=== PATIENT | male | born 1940 | race Caucasian/White ===

== ENCOUNTER 2017-06-21 10:28 | Inpatient (IN) | payer MEDICARE ==
--- NOTE | 2017-06-21 10:46 | ED ---
General Adult HPI - General Stated complaint: Cardiac Issues Time Seen by Provider: 06/21/17 10:28 Source: RN notes reviewed - History of Present Illness Initial comments: This is a 76-year-old male who presents emergency Department from [facility] for symptomatic bradycardia. Patient states his symptoms started 2 or 3 days ago. Patient has noticed exertional dyspnea and a lot more fatigued lately. Went to [facility] where they found his heart rate to be 29-30 beats minute. Patient appears to be in complete heart block. [facility] had not had any blood work done but they contacted Dr. Johnson who except the patient I transfer the patient to my ER. Patient currently denies any chest pain palpitations or shortness of breath while lying in bed with oxygen on. Patient states he had sprained some chest pain when he was short of breath today and yesterday but has none currently. - Related Data Allergies Allergy/AdvReac Type Severity Reaction Status Date / Time No Known Allergies Allergy Verified 06/21/17 10:47 Review of Systems ROS Statement: Those systems with pertinent positive or pertinent negative responses have been documented in the HPI. ROS Other: All systems not noted in ROS Statement are negative. General Exam - General Exam Comments Initial Comments: GENERAL: Patient is well-developed and well-nourished. Patient is nontoxic and well- hydrated and is in no acute distress. ENT: Neck is soft and supple. No significant lymphadenopathy is noted. Oropharynx is clear. Moist mucous membranes. Neck has full range of motion without eliciting any pain. EYES: The sclera were anicteric and conjunctiva were pink and moist. Extraocular movements were intact and pupils were equal round and reactive to light. Eyelids were unremarkable. PULMONARY: Unlabored respirations. Good breath sounds bilaterally. No audible rales rhonchi or wheezing was noted. CARDIOVASCULAR: Patient is bradycardic at about 30 beats a minute ABDOMEN: Soft and nontender with normal bowel sounds. No palpable organomegaly was noted. There is no palpable pulsatile mass. SKIN: Skin is clear with no lesions or rashes and otherwise unremarkable. NEUROLOGIC: Patient is alert and oriented x3. Cranial nerves II through XII are grossly intact. Motor and sensory are also intact. Normal speech, volume and content. Symmetrical smile. MUSCULOSKELETAL: Normal extremities with adequate strength and full range of motion. No lower extremity swelling or edema. No calf tenderness. LYMPHATICS: No significant lymphadenopathy is noted PSYCHIATRIC: Normal psychiatric evaluation. Medical Decision Making - Medical Decision Making EKG shows intraventricular rhythm at 30 bpm QRS is 146 QT intervals 574 QTC is 405. No signs of ST segment elevation or depression. I spoke with Dr. Johnson before the patient arrived and once the patient arrived patient had pacer pads applied patient will be directed to the [facility] where he 'll receive a pacemaker. Critical Care Time Critical Care Time: Yes Disposition Clinical Impression: Third degree AV block Disposition: ADMITTED IP TO THIS HOSP Referrals: Ana Roberts MD [Primary Care Provider] - 1-2 days Time of Disposition: 10:57
[2017-06-21] MEDS ORDERED: NITROGLYCERIN SL TABS 0.4 MG TAB SUBLINGUAL PRN (10:58)
[2017-06-21 11:03] LABS: Basophils % (A) 0 %; CH 32.1; CHCM 33.8; Eosinophils # (A) 0.2 k/uL (0-0.7); Eosinophils % (A) 3 %; HCT 39.8 % (39.0-53.0); HDW 2.39; HGB 13.2 gm/dL (13.0-17.5); Luc # (Auto) 0.09; Luc % (Auto) 2; Lymphocytes # (A) 0.7 k/uL (1.0-4.8); Lymphocytes % (A) 11 %; MCH 31.7 pg (25.0-35.0); MCHC 33.2 g/dL (31.0-37.0); MCV 95.5 fL (80.0-100.0); Mean Platelet Volume 8.8; Monocytes # (A) 0.5 k/uL (0-1.0); Monocytes % (A) 8 %; Neutrophils # (A) 4.7 k/uL (1.3-7.7); Neutrophils % (A) 77 %; RBC 4.17 m/uL (4.30-5.90); RDW 15.1 % (11.5-15.5); WBC 6.1 k/uL (3.8-10.6); WBC (Perox) 6.37
[2017-06-21 11:12] LABS: INR 1.2 (<1.2); Partial Thromboplastin Time 23.7 sec (22.0-30.0); Prothrombin Time 11.8 sec (9.0-12.0)
[2017-06-21 11:21] LABS: Calcium 8.9 mg/dL (8.4-10.2); Magnesium 1.9 mg/dL (1.6-2.3); Potassium 5.6 mmol/L (3.5-5.1); Total Bilirubin 0.3 mg/dL (0.2-1.3); Total Protein 5.8 g/dL (6.3-8.2)
[2017-06-21] MEDS ORDERED: SODIUM CHLORIDE 0.9% 500 ML IV ONE ×2 (11:25→11:54)
[2017-06-21] MEDS ORDERED: ASPIRIN 325 MG TAB PO ONE (11:29)
[2017-06-21 11:42] LABS: Creatine Kinase MB 1.2 ng/mL (0.0-2.4)
[2017-06-21 11:46] LABS: Troponin I 0.046 ng/mL (0.000-0.034)
[2017-06-21] MEDS ORDERED: LIDOCAINE 2% INJ 20 MG/ML SQ ONE (11:49)
[2017-06-21] MEDS ORDERED: MIDAZOLAM 2 MG/2 ML VIAL IVP ONE (12:07)
--- NOTE | 2017-06-21 12:16 | CONS ---
CONSULTATION Mr. Sr is a 76-year-old male known history of coronary artery disease, status post coronary artery bypass grafting. history of hypertension, hyperlipidemia, who presented to the emergency room at [facility] with symptoms of progressive fatigue, shortness of breath and not feeling well with vague chest discomfort. In the emergency room, he was noted to be in complete heart block. He was transferred to the emergency room at [facility]. The patient denies any syncopal episode, but he is feeling more weak and dizzy. He has no clear PND or orthopnea. He does not feel any palpitation. His heart rate is in the 30s. He did not have any new change in his medication. He has no significant changes peripheral edema. No PND or orthopnea. His risk factors are remarkable for hypertension, hyperlipidemia. He is nondiabetic. No recent smoking. MEDICATIONS: At home include amlodipine 5 mg daily, aspirin once a day. Enalapril 5 mg daily, metoprolol tartrate 25 mg twice a day and simvastatin 40 mg daily. REVIEW OF SYSTEMS: RESPIRATORY SYSTEM: He has dyspnea on exertion, history of chronic obstructive lung disease. No recent wheezing. GI SYSTEM: No recent GI bleed. No peptic ulcer disease. SYSTEM: No system no dysuria or hematuria. NERVOUS SYSTEM: No history of stroke or seizure. PAST SURGICAL HISTORY: Remarkable for the coronary artery bypass grafting. PHYSICAL EXAMINATION: 76-year-old male, alert, oriented, in no apparent distress. Heart rate running in the 30s with a blood pressure 110/70. HEAD: Normocephalic. EYES: Sclerae anicteric. NECK: No bruit. LUNGS: No wheezes or rales with decreased air exchange. HEART: Bradycardic. S1, S2. No S3 with systolic murmur at the base, ejection type. No diastolic murmur. ABDOMEN: Soft, nontender. Positive bowel sounds. No organomegaly. EXTREMITIES: Mild chronic stasis with trace to 1+ edema. LAB DATA: EKG revealed complete heart block with ventricular response at 30. His hemoglobin is 12.1. BUN and creatinine 22 and 1.63. Troponin less than 0.03. His potassium is 4.9. IMPRESSION: 1. Complete heart block with symptomatic fatigue, dyspnea and dizziness. 2. Status post coronary artery bypass grafting. 3. Hypertension. 4. Hyperlipidemia. 5. Chronic obstructive lung disease. 6. Renal failure. RECOMMENDATION: From the cardiac standpoint, I will proceed with a temporary pacemaker implantation. His beta-osman will be held and depending on his progress, further recommendation will be made. I have discussed with the patient and his family those findings and they are in full understanding and agreement. Thank you for this consult. We will follow with you. MANA / CARLYN: [id number] /
[2017-06-21 12:23] LABS: Glucose,Whole Blood 88 mg/dL (75-99)
--- NOTE | 2017-06-21 12:25 | CE ---
CARDIAC ELECTROPHYSIOLOGY REPORT INDICATION: Complete heart block. The patient presented to the emergency room with complete heart block, symptomatic with dyspnea and dizziness. Recommendation made regarding temporary pacemaker. The rationale behind the procedures risks and complication were discussed with the patient who is in full understanding and agreement. PROCEDURE: Patient was brought to [facility]. No sedation was given. After being prepped and prepped in conventional fashion using Xylocaine anesthesia and Seldinger technique, a 6- [place] sheath was introduced in the right femoral vein. A temporary pacemaker balloon guided was advanced, positioned in the right ventricle. Pacing parameters were obtained. Following that, the pacemaker was secured in place. There was no immediate complication. The patient was returned to his room in stable condition. MMODL / IJN: [id number] /
--- NOTE | 2017-06-21 14:33 | XR ---
EXAMINATION TYPE: XR chest 1V portable DATE OF EXAM: 06/21/2017 COMPARISON: 01/30/2012 HISTORY: Rule out congestive heart failure. Chest pain. TECHNIQUE: Single frontal view of the chest is obtained. FINDINGS: There is an enlarged cardiac silhouette with postoperative changes. Mild interstitial pulm onary edema, probable trace pleural effusions that silhouette the costophrenic angles, and mild pulmo nary vascular congestion are seen. Peripheral platelike subsegmental scattered areas of atelectasis a re present as well as minimal fluid within the minor fissure. Mild degenerative changes are seen of t he acromioclavicular joints. IMPRESSION: Mild interstitial pulmonary edema, pulmonary vascular congestion, and cardiomegaly with trace probable pleural effusions favoring underlying congestive heart failure.
[2017-06-21 15:34] VITALS: BMI 30.9
[2017-06-21] MEDS: SODIUM CHLORIDE 0.9% 1,000 ML IV SCH (16:11)
[2017-06-21 17:00] LABS: Creatine Kinase MB 1.1 ng/mL (0.0-2.4); Troponin I 0.045 ng/mL (0.000-0.034)
[2017-06-21] MEDS: traMADol 50 MG TAB PO PRN (18:25)
[2017-06-21] MEDS: TAMSULOSIN 0.4 MG CAP.ER.24H PO SCH (20:41)
[2017-06-21] MEDS: amLODIPine 5 MG TAB PO SCH (20:41)
[2017-06-21] MEDS: ATORVASTATIN 20 MG TAB PO SCH (20:41)
[2017-06-21 21:03] LABS: Anion Gap 8 mmol/L; Blood Urea Nitrogen 20 mg/dL (9-20); Calcium 8.6 mg/dL (8.4-10.2); Carbon Dioxide 23 mmol/L (22-30); Chloride 101 mmol/L (98-107); Glucose 99 mg/dL (74-99); Non-African American GFR(MDRD) 52 (>60 ml/min/1.73 sqM); Potassium 4.8 mmol/L (3.5-5.1); Sodium 132 mmol/L (137-145)
--- NOTE | 2017-06-21 22:13 | HP ---
HISTORY AND PHYSICAL DATE OF ADMISSION: 06/21/17. CHIEF COMPLAINT: Weakness and bradycardia. HISTORY OF PRESENT ILLNESS: This 76-year-old gentleman with a past medical history of multiple medical problems, including history of COPD, history of GERD, hypertension, hyperlipidemia and memory impairment being followed by in the outpatient setting presented to [facility] with complaints of weakness. The patient is not having energy recently. Patient unable to complete also. Patient also noted some exertional shortness of breath and because of multiple symptomatology patient went to [facility] and heart rate was found to be 130, the patient was in complete heart block. Cardiology was contacted and the patient was transferred to [facility] for further evaluation and treatment. There is no history of any fever, rigors or chills. No history of headache, loss of consciousness or seizures at this time. PAST MEDICAL HISTORY: COPD, history of GERD, hypertension, hyperlipidemia, memory impairment. MEDICATIONS PRIOR TO ADMISSION: Include home medications are: 1. Flomax 0.4. b.i.d. 2. Zocor 40 mg p.o. q.h.s. 3. Naprosyn 370 mg p.o. b.i.d. 4. Lopressor 12.5 mg p.o. b.i.d. 5. Norvasc 5 mg p.o. daily. 6. Famotidine 40 mg p.o. daily. 7. Vasotec 5 mg p.o. b.i.d. 8. Aspirin 320 mg p.o. daily. ALLERGIES: None. FAMILY HISTORY: History of myocardial infarction and depression. SOCIAL HISTORY: No history of smoking. No history of alcohol intake. REVIEW OF SYSTEMS: ENT: Diminished hearing. Diminished vision. The patient uses hearing aide. Cardiovascular: As mentioned earlier. Respiratory: No cough. No hemoptysis. GI no nausea or vomiting or diarrhea. : No dysuria. Nervous system: No numbness, weakness. ALLERGY/IMMUNOLOGY: No asthma or hayfever. Musculoskeletal: As mentioned earlier. Hematology/Oncology: No history of anemia. Endocrine: No history of diabetes or hypothyroidism. Constitutional: As mentioned earlier. Dermatology: Negative. Rheumatology: Negative. Psychiatric: As mentioned earlier. PHYSICAL EXAMINATION: Alert and oriented times three. VITAL SIGNS: Pulse 59, blood pressure 151/77, respiration 18, temperature is normal. Pulse ox 94% room air. The paced rhythm noted in the telemetry. HEENT: Conjunctivae normal. Oral mucosa is moist. Neck is no jugular venous distention. No carotid bruit. No lymph node enlargement. Cardiovascular is S1, S2. Bradycardic. Ejection systolic murmur. No S3, no S4. Respiratory: Breath sounds diminished in the bases. A few scattered rhonchi. No crackles. ABDOMEN: Soft, nontender. No mass palpable. Legs no edema. No swelling. Nervous system: Higher functions as mentioned earlier. Moves all 4 limbs. Lymphatics: No lymph nodes palpable in the neck, axillae or groin. Skin no ulcer, no ulcer, rash or bleeding. LAB: Investigations at this time shows WBC 4.2, hemoglobin 13.2, sodium 139, potassium 5.6, creatinine 1.48. ASSESSMENT: 1. Symptomatic bradycardia with complete AV dissociation status post temporary pacemaker insertion. 2. Troponin 0.046 indeterminate. 3. Hyperkalemia. 4. Increased creatinine with acute renal failure possibly. 5. Chronic obstructive pulmonary disease. 6. Gastroesophageal reflux disease. 7. Hypertension. 8. Hyperlipidemia. 9. Hard of hearing. 10.History of myocardial infarction. 11.History of coronary artery disease, coronary artery bypass grafting. RECOMMENDATIONS AND DISCUSSION: In this 76-year-old gentleman presented with multiple complex medical issues at this time I recommend to continue current management and continue current medications , symptomatic treatment. We will follow the patient closely with Cardiology for possible pacemaker implantation. Continued the monitoring. I would also recommend evaluation with the BMP on a stat basis, please also note troponin is also elevated of undetermined significance. Overall prognosis guarded because of multiple complex medical issues. Further recommendations to follow. MMODL / IJN: [id number] / YAZMIN
[2017-06-21 23:22] LABS: Creatine Kinase MB 1.1 ng/mL (0.0-2.4)
[2017-06-21 23:28] LABS: Troponin I 0.054 ng/mL (0.000-0.034)
[2017-06-22 04:23] LABS: Anion Gap 8 mmol/L; Blood Urea Nitrogen 18 mg/dL (9-20); Calcium 8.5 mg/dL (8.4-10.2); Carbon Dioxide 22 mmol/L (22-30); Chloride 103 mmol/L (98-107); Cholesterol 76 mg/dL (<200); Glucose 80 mg/dL (74-99); HDL Cholesterol 38 mg/dL (40-60); Magnesium 1.9 mg/dL (1.6-2.3); Non-African American GFR(MDRD) 57 (>60 ml/min/1.73 sqM); Potassium 4.8 mmol/L (3.5-5.1); Sodium 133 mmol/L (137-145)
[2017-06-22] MEDS ORDERED: Magnesium Replacement Protocol 1 EACH MISC MISCELLANE PRN (05:40)
[2017-06-22] MEDS: MAGNESIUM SULFATE-D5W PMX 1 GM in DEXTROSE/WATER 1 100ML.BAG IVPB SCH ×2 (06:30→08:39)
[2017-06-22] MEDS: SODIUM CHLORIDE 0.9% 1,000 ML IV SCH ×3 (06:38→18:36)
[2017-06-22] MEDS: TAMSULOSIN 0.4 MG CAP.ER.24H PO SCH ×2 (08:52→19:55)
[2017-06-22] MEDS: amLODIPine 5 MG TAB PO SCH ×2 (08:52→19:55)
[2017-06-22] MEDS: ASPIRIN 325 MG TAB PO SCH (08:52)
[2017-06-22] MEDS: FAMOTIDINE 20 MG TAB PO SCH (08:52)
[2017-06-22] MEDS ORDERED: ASPIRIN 325 MG TAB PO SCH (09:00)
[2017-06-22] MEDS ORDERED: amLODIPine 5 MG TAB PO SCH (09:00)
--- NOTE | 2017-06-22 09:53 | PN ---
PROGRESS NOTE Mr. Sr is a 76-year-old male known history of coronary artery disease , status post coronary artery bypass grafting, who presented with symptoms of progressive fatigue and shortness of breath. He was noted to have complete heart block. A temporary pacemaker was placed yesterday. He is feeling better today. He continued to be paced 100%. He has no chest pain. No dizziness. No palpitation. There is no evidence of significant ventricular ectopic activity. He continues to be on amlodipine 5 mg twice a day, aspirin once a day, Lipitor 20 mg daily, tamsulosin 0.4 mg twice a day. PHYSICAL EXAMINATION: Blood pressure 142/60 with the heart rate at 60. LUNGS: Clear anteriorly. HEART: Regular rate and rhythm. S1, S2 with a systolic murmur. No diastolic murmur. ABDOMEN: Soft, nontender. Positive bowel sounds. Right groin with pacemaker in place dry. LAB DATA: Lab data revealed a BUN and creatinine of 18 and 1.23. Potassium 4.8. His cholesterol 76, LDL of 27. His troponins are 0.046, 0.045 and 0.054. IMPRESSION: 1. Complete heart block, post temporary pacemaker implantation. 2. History of coronary artery disease, status post coronary artery bypass grafting. 3. Mild troponin elevation does not represent a type 1 event, most likely a demand supply mismatch. 4. Renal failure, resolved. 5. Hypertension. 6. History of hyperlipidemia. RECOMMENDATION: From the cardiac standpoint, we will proceed with permanent pacemaker implantation today, obtain an echocardiogram with Doppler, follow his renal function and depending on his progress, further recommendation will be made. MMODL / IJN: [id number] / YAZMIN
--- NOTE | 2017-06-22 10:56 | ECHOF ---
Referral Reason:cad MEASUREMENTS -------- HEIGHT: 188.0 cm WEIGHT: 114.3 kg BP: 142/65 RVIDd: 3.4 cm (< 3.3) IVSd: 1.4 cm (0.6 - 1.1) LVIDd: 5.0 cm (3.9 - 5.3) LVPWd: 1.3 cm (0.6 - 1.1) IVSs: 1.6 cm LVIDs: 3.6 cm LVPWs: 2.1 cm LA Diam: 4.0 cm (2.7 - 3.8) LAESV Index (A-L): 29.82 ml/m Ao Diam: 3.5 cm (2.0 - 3.7) AV Cusp: 2.4 cm (1.5 - 2.6) MV EXCURSION: 18.048 mm (> 18.000) MV EF SLOPE: 43 mm/s (70 - 150) EPSS: 1.1 cm MV E Brian: 1.25 m/s MV DecT: 180 ms MV A Brian: 0.38 m/s MV E/A Ratio: 3.33 AR PHT: 946 ms RAP: 5.00 mmHg RVSP: 26.66 mmHg FINDINGS -------- Paced rhythm. This was a technically good study. The left ventricular size is normal. There is moderate concentric left ventricular hypertrophy. Overall left ventricular systolic function is normal with, an EF between 55 - 60 %. The right ventricle is mildly enlarged. LA is midly dilated 29-33ml/m2. The right atrium is normal in size. There is mild aortic valve sclerosis. There is mild aortic regurgitation. Mild mitral annular calcification present. Mild mitral regurgitation is present. Mild tricuspid regurgitation present. Right ventricular systolic pressure is normal at < 35 mmHg. The pulmonic valve was not well visualized. The aortic root size is normal. The inferior vena cava is mildly dilated. There is no pericardial effusion. CONCLUSIONS -------- 1. Paced rhythm. 2. There is mild aortic regurgitation. 3. Mild mitral annular calcification present. 4. Mild mitral regurgitation is present. 5. Mild tricuspid regurgitation present. 6. Right ventricular systolic pressure is normal at < 35 mmHg. 7. The pulmonic valve was not well visualized. 8. The aortic root size is normal. 9. The inferior vena cava is mildly dilated. 10. There is no pericardial effusion. 11. This was a technically good study. 12. The left ventricular size is normal. 13. There is moderate concentric left ventricular hypertrophy. 14. Overall left ventricular systolic function is normal with, an EF between 55 - 60 %. 15. The right ventricle is mildly enlarged. 16. LA is midly dilated 29-33ml/m2. 17. The right atrium is normal in size. 18. There is mild aortic valve sclerosis. ENGINEER BYPRODUCT: Cyndi Cat RDCS
[2017-06-22 11:51] LABS: CH 30.3; CHCM 31.6; HCT 39.4 % (39.0-53.0); HDW 2.29; HGB 12.8 gm/dL (13.0-17.5); MCH 31.4 pg (25.0-35.0); MCHC 32.5 g/dL (31.0-37.0); MCV 96.6 fL (80.0-100.0); RBC 4.08 m/uL (4.30-5.90); WBC 5.5 k/uL (3.8-10.6)
[2017-06-22] MEDS ORDERED: ceFAZolin 2 GM in SODIUM CHLORIDE 0.9% 100 ML IVPB ONE (14:12)
[2017-06-22] MEDS ORDERED: ceFAZolin 1,000 MG in SODIUM CHLORIDE 0.9% IRRIGATIO 250 ML IRRIGATION ONE (14:12)
[2017-06-22] MEDS: traMADol 50 MG TAB PO PRN (15:49)
[2017-06-22] MEDS ORDERED: SODIUM CHLORIDE 0.9% 1,000 ML IV ONE (15:57)
[2017-06-22] MEDS ORDERED: IODIXANOL 270 MG/ML 50 ML ML IV ONE (16:24)
[2017-06-22] MEDS ORDERED: fentaNYL (PF) 50 MCG/ML 2 ML AMP IV ONE (16:44)
[2017-06-22] MEDS ORDERED: MIDAZOLAM 2 MG/2 ML VIAL IV ONE (16:45)
[2017-06-22] MEDS ORDERED: LIDOCAINE 1% INJ 10MG/ML (20 ML MDV) SQ ONE (16:49)
[2017-06-22] MEDS ORDERED: ACETAMINOPHEN TAB 325 MG TAB PO PRN (17:26)
[2017-06-22] MEDS: ATORVASTATIN 20 MG TAB PO SCH (19:55)
[2017-06-22] MEDS ORDERED: BENZOCAINE/MENTHOL LOZENG 1 EACH LOZENGE MUCOUS MEM PRN (19:57)
--- NOTE | 2017-06-22 20:20 | PN ---
PROGRESS NOTE DATE OF SERVICE: 06/22/2017. INTERVAL HISTORY: This 76 -year-old gentleman admitted with complete heart block is being monitored closely. The patient is on temporary pacemaker placement, permanent pacemaker implantation has been planned. No chest pain. No palpitations. No fever. Also a 2D echo showed ejection fraction 55 to 60%. EXAM: Alert, oriented x3. The pulse is 60. Blood pressure 157/75, respiration 18, temperature 97.4, pulse ox 97% on room air. HEENT: Conjunctivae normal. Cardiovascular: S1, S2 muffled. Respiratory: Breath sounds diminished in the bases. No rhonchi. No crackles. ABDOMEN: Soft. Nontender. Legs. No edema. No swelling. Central nervous system: No focal deficits. LAB STUDIES: WBC 5.2, hemoglobin 12.2, sodium 133. ASSESSMENT: 1. Symptomatic bradycardia with complete AV dissociation status post temporary pacemaker implantation. 2. Troponin 0.046 indeterminate. 3. Hyperkalemia. 4. Increased creatinine with acute renal failure possibly. 5. Chronic obstructive pulmonary disease. 6. Gastroesophageal reflux disease. 7. Hypertension. 8. Hyperlipidemia. 9. Hard of hearing. 10.History myocardial infarction. 11.History of coronary artery disease, coronary artery bypass grafting. RECOMMENDATION AND DISCUSSION: Recommend to continue current medications, continue symptomatic treatment. Continue current management. At this time, I would recommend continue the current medications. The creatinine has improved significantly. Patient being closely monitored in ICU. Guarded prognosis because of multiple complex medical issues. Further recommendations to follow. MANA / CARLYN: [id number] /
[2017-06-22] MEDS: ceFAZolin 2 GM in SODIUM CHLORIDE 0.9% 100 ML IVPB SCH (22:00)
[2017-06-23 01:55] VITALS: TEMP 98
[2017-06-23] MEDS: ceFAZolin 2 GM in SODIUM CHLORIDE 0.9% 100 ML IVPB SCH ×2 (04:00→11:42)
[2017-06-23 04:30] LABS: Basophils % (A) 0 %; CH 30.5; CHCM 32.4; Eosinophils # (A) 0.3 k/uL (0-0.7); Eosinophils % (A) 5 %; HCT 40.7 % (39.0-53.0); HGB 13.3 gm/dL (13.0-17.5); Luc # (Auto) 0.09; Luc % (Auto) 2; Lymphocytes # (A) 0.6 k/uL (1.0-4.8); Lymphocytes % (A) 10 %; MCHC 32.8 g/dL (31.0-37.0); MCV 94.5 fL (80.0-100.0); Mean Platelet Volume 7.4; Monocytes # (A) 0.4 k/uL (0-1.0); Monocytes % (A) 7 %; Neutrophils # (A) 4.3 k/uL (1.3-7.7); Neutrophils % (A) 75 %; RDW 13.9 % (11.5-15.5); WBC 5.7 k/uL (3.8-10.6); WBC (Perox) 6.29
[2017-06-23 05:08] LABS: Anion Gap 7 mmol/L; Blood Urea Nitrogen 18 mg/dL (9-20); Calcium 8.3 mg/dL (8.4-10.2); Carbon Dioxide 22 mmol/L (22-30); Chloride 106 mmol/L (98-107); Glucose 84 mg/dL (74-99); Magnesium 2.2 mg/dL (1.6-2.3); Non-African American GFR(MDRD) >60 (>60 ml/min/1.73 sqM); Potassium 4.9 mmol/L (3.5-5.1); Sodium 135 mmol/L (137-145)
[2017-06-23] MEDS: SODIUM CHLORIDE 0.9% 1,000 ML IV SCH ×2 (06:08→07:56)
[2017-06-23] MEDS: ASPIRIN 325 MG TAB PO SCH (07:56)
[2017-06-23] MEDS: amLODIPine 5 MG TAB PO SCH (07:56)
[2017-06-23] MEDS: FAMOTIDINE 20 MG TAB PO SCH (07:56)
[2017-06-23] MEDS: TAMSULOSIN 0.4 MG CAP.ER.24H PO SCH (07:57)
--- NOTE | 2017-06-23 08:09 | P.PCN ---
Date of Procedure: 06/23/17 Preoperative Diagnosis: Complete heart block status post temporary pacemaker implantation and also CHF Postoperative Diagnosis: The same Procedure(s) Performed: Dual-chamber permanent pacemaker implantation, axillary venography Description of Procedure: HISTORY: This is a 76-year-old gentleman with history of chronic ischemic heart disease and congestive heart failure who was admitted to the hospital with complete heart block. Patient had a temporary pacemaker implantation. A permanent pacemaker implantation is requested by Dr. Johnson. CONSENT:I have discussed the risks, benefits and alternative therapies for the above-mentioned procedure and for both sedation/analgesia as well as necessary blood product administration, if indicated, as they pertain to this patient. The patient has indicated understanding and acceptance of the risks and procedures discussed. PROCEDURE: Patient was brought to the lab in a fasting state. Patient was prepped and draped in the usual fashion. Patient was given IV sedation with fentanyl and Versed. The skin below the left clavicle was infiltrated with lidocaine. An incision was made parallel to deltopectoral groove was deepened until the pectoral fascia was exposed. A pocket was created by blunt dissection and cautery. Axillary venography was performed to delineate the course of the axillary vein. 2 sticks were performed into extrathoracic portion of the axillary vein and 2 sheaths were advanced over the guidewires and left in subclavian vein. Conscious Sedation: Versed 1 mg Fentanyl 50 g Duration 60 The minutes LEADS: ATRIAL: This is manufactured by [employer]. Model number is [id number] and the serial number is [id number] VENTRICULAR: . This is manufactured by [employer]. Model number is [id number]. Serial number is [id number]. THE DEVICE: This is manufactured by [employer]. Model number is L111. Serial number is [id number] The ventricular lead is maneuvered l with help of a straight and curved stylets into the left ventricle apical region. Satisfactory position was obtained and threshold measurements were made. The atrial lead was then maneuvered into the right atrial appendage. And thresholds were obtained. THRESHOLDS: ATRIUM: . 0.6 V at pulse width of 0.5 ms. Impedance is 6 and 34 ohms P-wave:, 2.2 mV VENTRICLE: 0.7 V at pulse width of 0.5 ms. Impedance is 989 ohms R-wave: Could not be measured The leads and pulse generator remained in the pocket after it was washed with antibiotics. Pocket was closed in the usual fashion. The fascia was closed with 2-0 Prolene ,the subcutaneous tissue was closed with 3-0 Prolene and the skin was closed with 4-0 Prolene. PROGRAMMING: MODE: . DJD RATE: 60-120 OUTPUT: Atrium Ventricle FINAL IMPRESSION: #1. Axillary venography #2. Dual-chamber permanent pacemaker implantation COMPLICATIONS: . None PLAN: . Continuation of prophylactic antibiotics. Telemetry monitoring. Chest x-ray in the morning.
--- NOTE | 2017-06-23 08:30 | PN ---
PROGRESS NOTE Mr. Sr is a 76-year-old male known history of coronary disease, who presented with complete heart block, underwent temporary pacemaker implantation. Subsequently yesterday had a permanent pacemaker implantation. He is doing well this morning. He denied chest pain. His breathing has been stable. He denies any dizziness palpitation. He denies any nausea. He feels stronger with improved energy. He continues to be on amlodipine 5 mg twice a day, Lipitor 20 mg daily, aspirin once a day. PHYSICAL EXAMINATION: Blood pressure 158/60 with a heart in 90s. Pacemaker rhythm noted to with occasional PVCs. LUNGS: Clear. HEART: S1, S2. No S3, no rub, with a clean site pacemaker. ABDOMEN: Soft, nontender. EXTREMITIES: No edema. LAB DATA: Revealed BUN and creatinine of 18 and 1.14, potassium 4.9, sodium 135, hemoglobin 13.3. Chest x-ray revealed a normal positioning of his pacemaker. His echocardiogram revealed preserved ventricular size and systolic function. IMPRESSION: 1. Status post permanent pacemaker implantation for complete heart block. 2. Hypertension. RECOMMENDATION: Patient's beta osman will be restarted. His pacemaker will be interrogated. If there is no evidence of significant abnormality, then I suspect he will be able to be discharged home today and followed as an outpatient. He will be restarted on the Lopressor 25 mg twice a day. MMODL / IJN: [id number] /
[2017-06-23] MEDS ORDERED: METOPROLOL TARTRATE 25 MG TAB PO SCH (09:00)
--- NOTE | 2017-06-23 11:02 | XR ---
EXAMINATION TYPE: XR chest 2V DATE OF EXAM: 06/23/2017 COMPARISON: 06/21/2017 TECHNIQUE: PA and lateral views submitted. HISTORY: Lead placement FINDINGS: Double lead pacemaker with the proximal lead overlying the right atrium and the distal lead overlying the right ventricle. Bilateral pleural effusions and postoperative changes are seen. Degenerative an d hypertrophic change of the spine. Mild central interstitial prominence. No pneumothorax. IMPRESSION: 1. COPD with bilateral infiltrate and small effusion correlate for mild venous congestion.
[2017-06-23 15:09] VITALS: BP 163/75; PULSE 63; RESP 14
--- NOTE | 2017-06-23 16:31 | P.DS ---
Providers Date of admission: 06/21/17 10:58 Attending physician: Nathaly Hooper Consults: 06/21/17 10:58 Consult Physician Urgent Consulting Provider: [facility] Consult Reason/Comments: Third-degree block Do you want consulting provider notified?: Yes Primary care physician: Ana Roberts [facility] Course: This 76-year-old gentleman was admitted with the symptomatic bradycardia and as well as complete AV dissociation. Patient was evaluated by cardiology. Permanent pacemaker was implanted. Patient improved since significantly symptomatically. Patient be discharged in a stable condition with guarded prognosis with further plans follow-up with the primary physician as well as cardiology. On exam vitals are stable. Cardio S1-S2 normal. Respiratory system. Clear to auscultation Abdomen soft nontender. Final diagnosis 1. Symptomatic bradycardia and complete AV dissociation status post permanent pacemaker implantation. 2. Troponin 0.046 indeterminate. 3. Hypokalemia present on admission improved sleep. 4. Increased creatinine with acute renal failure possibly present on admission improved. Patient Condition at Discharge: Good Plan - Discharge Summary New Discharge Prescriptions: New amLODIPine [Norvasc] 5 mg PO BID #60 tab traMADol HCl [Ultram] 50 mg PO Q6H PRN #20 tab PRN Reason: Pain Continue Tamsulosin [Flomax] 0.4 mg PO BID Naproxen [Naprosyn] 375 mg PO Q12HR Metoprolol Tartrate [Lopressor] 12.5 mg PO BID Famotidine 40 mg PO DAILY Enalapril [Vasotec] 5 mg PO BID Aspirin 325 mg PO DAILY Simvastatin [Zocor] 40 mg PO HS Ipratropium Nebulized [Atrovent Nebulized] 0.5 mg INHALATION RT-Q6H Discontinued amLODIPine [Norvasc] 5 mg PO DAILY Discharge Medication List Aspirin 325 mg PO DAILY 06/21/17 [History] Enalapril [Vasotec] 5 mg PO BID 06/21/17 [History] Famotidine 40 mg PO DAILY 06/21/17 [History] Metoprolol Tartrate [Lopressor] 12.5 mg PO BID 06/21/17 [History] Naproxen [Naprosyn] 375 mg PO Q12HR 06/21/17 [History] Simvastatin [Zocor] 40 mg PO HS 06/21/17 [History] Tamsulosin [Flomax] 0.4 mg PO BID 10/01/17 [History] Ipratropium Nebulized [Atrovent Nebulized] 0.5 mg INHALATION RT-Q6H 06/22/17 [ History] amLODIPine [Norvasc] 5 mg PO BID #60 tab 06/23/17 [Rx] traMADol HCl [Ultram] 50 mg PO Q6H PRN #20 tab 06/23/17 [Rx] Follow up Appointment(s)/Referral(s): Flavia Johnson MD [STAFF PHYSICIAN] - 07/13/17 2:30 pm Ana Roberts MD [Primary Care Provider] - 1-2 days (Dr Roberts will call to set up appointment, office notified of need for visit) Patient Instructions/Handouts: Pacemaker (DC) Activity/Diet/Wound Care/Special Instructions: diet cardiac act limited till f/u Discharge Disposition: HOME SELF-CARE
== END 2017-06-23 15:00 | disposition home or self-care (01) | DRG 243 ==
LOC: EC 10:28 → 6SEL 10:58 → 6ICU 11:58
PROVIDERS: ADMIT Internal Medicine; ATTEND Internal Medicine
PROC: 0JH606Z Insertion of Pacemaker, Dual Chamber into Chest Subcutaneous Tissue and Fascia, Open Approach (ICD-10-PCS; principal; 2017-06-23)
PROC: 02H63JZ Insertion of Pacemaker Lead into Right Atrium, Percutaneous Approach (ICD-10-PCS; 2017-06-23)
PROC: 02HK3JZ Insertion of Pacemaker Lead into Right Ventricle, Percutaneous Approach (ICD-10-PCS; 2017-06-23)
PROC: 5A1223Z Performance of Cardiac Pacing, Continuous (ICD-10-PCS; 2017-06-23)
DX: I44.2 Atrioventricular block, complete (principal); N17.9 Acute kidney failure, unspecified; E87.5 Hyperkalemia; I50.9 Heart failure, unspecified; I11.0 Hypertensive heart disease with heart failure; J44.9 Chronic obstructive pulmonary disease, unspecified; I45.89 Other specified conduction disorders; R00.1 Bradycardia, unspecified; K21.9 Gastro-esophageal reflux disease without esophagitis; E78.5 Hyperlipidemia, unspecified; H91.90 Unspecified hearing loss, unspecified ear; E87.6 Hypokalemia; M19.90 Unspecified osteoarthritis, unspecified site; I25.10 Atherosclerotic heart disease of native coronary artery without angina pectoris; Z95.1 Presence of aortocoronary bypass graft; Z81.8 Family history of other mental and behavioral disorders; Z82.49 Family history of ischemic heart disease and other diseases of the circulatory system; I25.2 Old myocardial infarction; Z79.899 Other long term (current) drug therapy; Z79.82 Long term (current) use of aspirin
CPT/HCPCS: 33208; 33210; 36415; 71010; 71020; 80048; 80053; 80061; 82550; 82553; 83735; 83880; 84443; 84484; 85025; 85027; 85610; 85730; 93005; 93306; 99285

== ENCOUNTER 2017-12-02 09:58 | Emergency (ER) | payer MEDICARE ==
[2017-12-02 10:04] VITALS: RESP 18; TEMP 97
--- NOTE | 2017-12-02 10:33 | ED ---
General Adult HPI - General Chief complaint: Weakness Stated complaint: Weakness, has a pacemaker Time Seen by Provider: 12/02/17 10:08 Source: patient, RN notes reviewed, old records reviewed Mode of arrival: wheelchair Limitations: no limitations - History of Present Illness Initial comments: This is a 69-year-old male to the ER for evaluation presents today for a feelings of weakness not feeling well fatigued. Patient has strong history of heart disease recent pacemaker placement 4 months ago. No chest pain no shortness of breath or recent travel history no sick contacts no change in medications. Patient did have 4 bouts of diarrhea today no nausea or vomiting. No abdominal pain. - Related Data Home Medications Medication Instructions Recorded Confirmed Enalapril [Vasotec] 5 mg PO BID 06/21/17 12/02/17 Famotidine 40 mg PO DAILY PRN 06/21/17 12/02/17 Metoprolol Tartrate [Lopressor] 25 mg PO BID 06/21/17 12/02/17 Naproxen [Naprosyn] 375 mg PO Q12HR PRN 06/21/17 12/02/17 Simvastatin [Zocor] 40 mg PO HS 06/21/17 12/02/17 Tamsulosin [Flomax] 0.4 mg PO HS 06/21/17 12/02/17 Apixaban [Eliquis] 5 mg PO BID 12/02/17 12/02/17 Aspirin 81 mg PO BID 12/02/17 12/02/17 Coconut Oil 1 tab PO DAILY 12/02/17 12/02/17 Previous Rx's Medication Instructions Recorded amLODIPine [Norvasc] 5 mg PO BID #60 tab 06/23/17 traMADol HCl [Ultram] 50 mg PO Q6H PRN #20 tab 06/23/17 Allergies Allergy/AdvReac Type Severity Reaction Status Date / Time No Known Allergies Allergy Verified 12/02/17 11:05 Review of Systems ROS Statement: Those systems with pertinent positive or pertinent negative responses have been documented in the HPI. ROS Other: All systems not noted in ROS Statement are negative. Past Medical History Past Medical History: Coronary Artery Disease (CAD), Chest Pain / Angina, COPD, GERD/Reflux, Hearing Disorder / Deafness, Hyperlipidemia, Hypertension, Memory Impairment, Myocardial Infarction ([place]), Musculoskeletal Disorder, Osteoarthritis (OA), Prostate Disorder Additional Past Medical History / Comment(s): [place] wears hearing aides, sciatica with pain in left leg, tingling in hands at times, restless legs Last Myocardial Infarction Date:: unkown History of Any Multi-Drug Resistant Organisms: None Reported Past Surgical History: Appendectomy, Coronary Bypass/CABG, Pacemaker Additional Past Surgical History / Comment(s): CABG--triple bypass. no valves, transvenous pacer inserted today 06/21/2017 Past Anesthesia/Blood Transfusion Reactions: No Reported Reaction Past Psychological History: No Psychological Hx Reported Smoking Status: Never smoker Past Alcohol Use History: None Reported Past Drug Use History: None Reported - Past Family History Mother Additional Family Medical History / Comment(s): depression Father Family Medical History: Myocardial Infarction ([place]) General Exam Limitations: no limitations General appearance: alert, in no apparent distress Head exam: Present: atraumatic, normocephalic, normal inspection Eye exam: Present: normal appearance, PERRL, EOMI. Absent: scleral icterus, conjunctival injection, periorbital swelling ENT exam: Present: normal exam, mucous membranes moist Neck exam: Present: normal inspection. Absent: tenderness, meningismus, lymphadenopathy Respiratory exam: Present: normal lung sounds bilaterally. Absent: respiratory distress, wheezes, rales, rhonchi, stridor Cardiovascular Exam: Present: regular rate, normal rhythm, normal heart sounds. Absent: systolic murmur, diastolic murmur, rubs, gallop, clicks GI/Abdominal exam: Present: soft, normal bowel sounds. Absent: distended, tenderness, guarding, rebound, rigid Extremities exam: Present: normal inspection, full ROM, normal capillary refill. Absent: tenderness, pedal edema, joint swelling, calf tenderness Back exam: Present: normal inspection Neurological exam: Present: alert, oriented X3, CN II-XII intact Psychiatric exam: Present: normal affect, normal mood Skin exam: Present: warm, dry, intact, normal color. Absent: rash Course Vital Signs 12/02/17 12/02/17 10:00 11:32 Temperature 97 F L Pulse Rate 55 L 60 Respiratory 18 18 Rate Blood Pressure 127/67 133/70 O2 Sat by Pulse 98 98 Oximetry - Reevaluation(s) Reevaluation #1: 12/02/17 12:47 Patient is able to stand up ambulate without weakness EKG Findings - EKG Comments: EKG Findings:: EKG shows paced rhythm rate of 60, TN 188, QRS 18, QTc 458 Medical Decision Making - Medical Decision Making 77 male the ER for evasive weakness. No acute disease process found. Patient states he is without significant complaint at this time would like to be discharged home - Lab Data Result diagrams: 12/02/17 10:35 12/02/17 10:35 Lab Results 12/02/17 12/02/17 12/02/17 Range/Units 10:35 10:35 10:35 WBC 4.8 (3.8-10.6) k/uL RBC 4.79 (4.30-5.90) m/uL Hgb 14.4 (13.0-17.5) gm/dL Hct 42.7 (39.0-53.0) % MCV 89.2 (80.0-100.0) fL MCH 30.1 (25.0-35.0) pg MCHC 33.7 (31.0-37.0) g/dL RDW 13.5 (11.5-15.5) % Plt Count 219 (150-450) k/uL Neutrophils % 67 % Lymphocytes % 17 % Monocytes % 9 % Eosinophils % 4 % Basophils % 0 % Neutrophils # 3.2 (1.3-7.7) k/uL Lymphocytes # 0.8 L (1.0-4.8) k/uL Monocytes # 0.5 (0-1.0) k/uL Eosinophils # 0.2 (0-0.7) k/uL Basophils # 0.0 (0-0.2) k/uL PT (9.0-12.0) sec INR (<1.2) APTT (22.0-30.0) sec Sodium 138 (137-145) mmol/L Potassium 4.4 (3.5-5.1) mmol/L Chloride 103 (98-107) mmol/L Carbon Dioxide 26 (22-30) mmol/L Anion Gap 9 mmol/L BUN 18 (9-20) mg/dL Creatinine 1.02 (0.66-1.25) mg/dL Est GFR (CKD-EPI)AfAm 81 (>60 ml/min/1.73 sqM) Est GFR (CKD-EPI)NonAf 70 (>60 ml/min/1.73 sqM) Glucose 91 (74-99) mg/dL Calcium 9.4 (8.4-10.2) mg/dL Phosphorus 3.0 (2.5-4.5) mg/dL Magnesium 2.0 (1.6-2.3) mg/dL Total Bilirubin 0.4 (0.2-1.3) mg/dL AST 19 (17-59) U/L ALT 15 L (21-72) U/L Alkaline Phosphatase 48 (38-126) U/L Total Creatine Kinase 75 (55-170) U/L CK-MB (CK-2) 0.5 (0.0-2.4) ng/mL CK-MB (CK-2) Rel Index 0.7 Troponin I <0.012 (0.000-0.034) ng/mL Total Protein 6.4 (6.3-8.2) g/dL Albumin 3.6 (3.5-5.0) g/dL Urine Color Urine Appearance (Clear) Urine pH (5.0-8.0) Ur Specific [place] (1.001-1.035) Urine Protein (Negative) Urine Glucose (UA) (Negative) Urine Ketones (Negative) Urine Blood (Negative) Urine Nitrite (Negative) Urine Bilirubin (Negative) Urine Urobilinogen (<2.0) mg/dL Ur Leukocyte Esterase (Negative) 12/02/17 12/02/17 Range/Units 10:35 11:40 WBC (3.8-10.6) k/uL RBC (4.30-5.90) m/uL Hgb (13.0-17.5) gm/dL Hct (39.0-53.0) % MCV (80.0-100.0) fL MCH (25.0-35.0) pg MCHC (31.0-37.0) g/dL RDW (11.5-15.5) % Plt Count (150-450) k/uL Neutrophils % % Lymphocytes % % Monocytes % % Eosinophils % % Basophils % % Neutrophils # (1.3-7.7) k/uL Lymphocytes # (1.0-4.8) k/uL Monocytes # (0-1.0) k/uL Eosinophils # (0-0.7) k/uL Basophils # (0-0.2) k/uL PT 10.4 (9.0-12.0) sec INR 1.1 (<1.2) APTT 22.8 (22.0-30.0) sec Sodium (137-145) mmol/L Potassium (3.5-5.1) mmol/L Chloride (98-107) mmol/L Carbon Dioxide (22-30) mmol/L Anion Gap mmol/L BUN (9-20) mg/dL Creatinine (0.66-1.25) mg/dL Est GFR (CKD-EPI)AfAm (>60 ml/min/1.73 sqM) Est GFR (CKD-EPI)NonAf (>60 ml/min/1.73 sqM) Glucose (74-99) mg/dL Calcium (8.4-10.2) mg/dL Phosphorus (2.5-4.5) mg/dL Magnesium (1.6-2.3) mg/dL Total Bilirubin (0.2-1.3) mg/dL AST (17-59) U/L ALT (21-72) U/L Alkaline Phosphatase (38-126) U/L Total Creatine Kinase (55-170) U/L CK-MB (CK-2) (0.0-2.4) ng/mL CK-MB (CK-2) Rel Index Troponin I (0.000-0.034) ng/mL Total Protein (6.3-8.2) g/dL Albumin (3.5-5.0) g/dL Urine Color Yellow Urine Appearance Clear (Clear) Urine pH 6.0 (5.0-8.0) Ur Specific [place] 1.018 (1.001-1.035) Urine Protein Negative (Negative) Urine Glucose (UA) Negative (Negative) Urine Ketones Negative (Negative) Urine Blood Negative (Negative) Urine Nitrite Negative (Negative) Urine Bilirubin Negative (Negative) Urine Urobilinogen 2.0 (<2.0) mg/dL Ur Leukocyte Esterase Negative (Negative) - Radiology Data Radiology results: report reviewed (Chest x-rays negative), image reviewed Disposition Clinical Impression: Weakness Disposition: HOME SELF-CARE Condition: Good Instructions: Weakness (ED) Referrals: Ana Roberts MD [Primary Care Provider] - 1-2 days
[2017-12-02 11:23] LABS: INR 1.1 (<1.2); Partial Thromboplastin Time 22.8 sec (22.0-30.0); Prothrombin Time 10.4 sec (9.0-12.0)
[2017-12-02 11:25] LABS: Albumin 3.6 g/dL (3.5-5.0); Calcium 9.4 mg/dL (8.4-10.2); Potassium 4.4 mmol/L (3.5-5.1); Total Bilirubin 0.4 mg/dL (0.2-1.3); Total Protein 6.4 g/dL (6.3-8.2)
[2017-12-02 11:33] VITALS: BP 133/70; PULSE 60
[2017-12-02 11:33] LABS: Basophils % (A) 0 %; Eosinophils # (A) 0.2 k/uL (0-0.7); Eosinophils % (A) 4 %; HCT 42.7 % (39.0-53.0); HGB 14.4 gm/dL (13.0-17.5); Lymphocytes # (A) 0.8 k/uL (1.0-4.8); Lymphocytes % (A) 17 %; MCH 30.1 pg (25.0-35.0); MCHC 33.7 g/dL (31.0-37.0); MCV 89.2 fL (80.0-100.0); Mean Platelet Volume 7.6; Monocytes # (A) 0.5 k/uL (0-1.0); Monocytes % (A) 9 %; Neutrophils # (A) 3.2 k/uL (1.3-7.7); Neutrophils % (A) 67 %; Platelet Count 219 k/uL (150-450); RBC 4.79 m/uL (4.30-5.90); RDW 13.5 % (11.5-15.5); WBC 4.8 k/uL (3.8-10.6)
[2017-12-02 11:36] LABS: Creatine Kinase 75 U/L (55-170)
--- NOTE | 2017-12-02 11:39 | XR ---
EXAMINATION TYPE: XR chest 2V DATE OF EXAM: 12/02/2017 COMPARISON: 06/23/2017 HISTORY: 77-year-old male with weakness TECHNIQUE: PA and lateral views FINDINGS: Left anterior chest wall pacemaker generator with right atrial and right ventricular leads. Median st ernotomy wires are present with post-CABG clips. Mild hyperinflation. Mild diffuse interstitial promi nence has a chronic appearance. Heart upper limits of normal in size. No consolidation or pleural eff usion. IMPRESSION: Heart upper limits of normal in size. Hyperinflation could reflect depth of inspiration or underlying COPD. There are chronic changes without acute process seen.
[2017-12-02 11:48] LABS: Creatine Kinase MB 0.5 ng/mL (0.0-2.4); Troponin I <0.012 ng/mL (0.000-0.034)
[2017-12-02 11:54] LABS: Appearance,Urine Clear (Clear); Bilirubin,Urine Negative (Negative); Blood,Urine Negative (Negative); Color,Urine Yellow; Glucose,Urine (UA) Negative (Negative); Ketones,Urine Negative (Negative); Leukocyte Esterase,Urine Negative (Negative); Nitrite,Urine Negative (Negative); Protein,Urine Negative (Negative); Specific Gravity,Urine 1.018 (1.001-1.035)
== END 2017-12-02 13:20 | disposition home or self-care (01) ==
LOC: EC 09:58
DX: R53.1 Weakness (principal); R53.83 Other fatigue; R19.7 Diarrhea, unspecified; I25.10 Atherosclerotic heart disease of native coronary artery without angina pectoris; E78.5 Hyperlipidemia, unspecified; I10 Essential (primary) hypertension; I25.2 Old myocardial infarction; M19.90 Unspecified osteoarthritis, unspecified site; N42.9 Disorder of prostate, unspecified; Z79.01 Long term (current) use of anticoagulants; Z79.82 Long term (current) use of aspirin; Z79.899 Other long term (current) drug therapy; Z95.1 Presence of aortocoronary bypass graft; Z95.0 Presence of cardiac pacemaker
CPT/HCPCS: 36415; 71046; 80053; 81003; 82550; 82553; 83735; 84100; 84484; 85025; 85610; 85730; 93005; 99285

== ENCOUNTER 2021-06-20 05:45 | Day surgery (SDC) | payer MEDICARE ==
[2021-06-19 09:17] VITALS: BMI 29.4
[2021-06-20] MEDS ORDERED: ALPRAZolam 0.5 MG TAB PO PRN (05:51)
[2021-06-20] MEDS ORDERED: ALPRAZolam 0.25 MG TAB PO PRN (05:51)
[2021-06-20] MEDS ORDERED: NITROGLYCERIN SL TABS 0.4 MG TAB SUBLINGUAL PRN (05:51)
[2021-06-20] MEDS ORDERED: SODIUM CHLORIDE 0.9% 1,000 ML in EMPTY BAG 1 BAG IV SCH (05:51)
[2021-06-20 06:38] VITALS: RESP 18; TEMP 97.5
[2021-06-20 06:44] LABS: Basophils % (A) 0 %; Eosinophils # (A) 0.2 k/uL (0-0.7); Eosinophils % (A) 4 %; HCT 45.8 % (39.0-53.0); HGB 14.8 gm/dL (13.0-17.5); Lymphocytes % (A) 17 %; MCHC 32.2 g/dL (31.0-37.0); MCV 93.2 fL (80.0-100.0); Mean Platelet Volume 8.3; Monocytes # (A) 0.4 k/uL (0-1.0); Monocytes % (A) 7 %; Neutrophils % (A) 70 %; Platelet Count 193 k/uL (150-450); RBC 4.91 m/uL (4.30-5.90); RDW 14.5 % (11.5-15.5); WBC 5.7 k/uL (3.8-10.6)
[2021-06-20] MEDS ORDERED: ASPIRIN 325 MG TAB PO ONE (07:00)
[2021-06-20] MEDS ORDERED: HEPARIN SODIUM,PORCINE 10,000 UNIT in SODIUM CHLORIDE 0.9% 1,000 ML IRRIGATION PRN (07:00)
[2021-06-20] MEDS ORDERED: HEPARIN SODIUM,PORCINE 2,500 UNIT in SODIUM CHLORIDE 0.9% 250 ML IRRIGATION PRN (07:00)
[2021-06-20] MEDS ORDERED: ATORVASTATIN 80 MG TAB PO ONE (07:00)
[2021-06-20] MEDS ORDERED: LIDOCAINE 1% INJ 10MG/ML (20 ML MDV) ONE (07:10)
[2021-06-20] MEDS ORDERED: fentaNYL (PF) 50 MCG/ML 2 ML AMP ONE (07:23)
[2021-06-20] MEDS: fentaNYL (PF) 50 MCG/ML 2 ML AMP IV ONE ×2 (07:27→07:34)
[2021-06-20] MEDS ORDERED: LIDOCAINE 1% INJ 10MG/ML (20 ML MDV) SQ ONE (07:32)
[2021-06-20 07:42] LABS: Calcium 9.4 mg/dL (8.4-10.2); Potassium 4.9 mmol/L (3.5-5.1)
[2021-06-20] MEDS ORDERED: IOPAMIDOL-370 125ML BTL INJ ONE (07:51)
[2021-06-20] MEDS ORDERED: RX INFO: IV CONTRAST WAS GIVEN 1 EACH MISC MISCELLANE PRN (08:14)
[2021-06-20] MEDS ORDERED: SODIUM CHLORIDE 0.9% 1,000 ML IV SCH (08:15)
--- NOTE | 2021-06-20 10:21 | CC ---
CARDIAC CATHETERIZATION REPORT Mr. Sr is an 80-year-old male with known history of hypertension, hyperlipidemia, chronic persistent atrial fibrillation who is status post coronary artery bypass grafting and recently has been complaining of progressive dyspnea on exertion. He underwent a myocardial perfusion imaging that revealed evidence of inducible ischemia. In view of that, recommendation was made regarding cardiac catheterization. The procedure as well as the risks and the complications were discussed with the patient who is in full understanding and agreement. PROCEDURE: Patient was brought to dental laboratory worker in a fasting semi-sedated state after receiving fentanyl and Benadryl and achieving moderate conscious sedated state using Xylocaine anesthesia and Seldinger technique, a 6-[place] sheath was introduced in the right femoral artery. Selective right and left coronary angiography performed using 6-[place] 4 bend right and left Judkin's catheter. Multiple views of the coronary artery including hemiaxial views obtained. The 6-[place] right Oneil was used to cross the aortic valve and left ventricular end-diastolic pressure was calculated and it was also used to cannulate the CALLAWAY to the LAD. Images of the grafts were obtained. Following that 6-[place] left coronary bypass catheter was used to cannulate the saphenous vein graft to the obtuse marginal branch 1 and 3 and images of the grafts were obtained. Following that, catheter and sheath were removed. Hemostasis was obtained with deployment of Angio-Seal. There was no immediate complication. Patient is returned to his room in stable condition. FINDINGS: FLUOROSCOPY: There was significant calcification involving all the coronary arteries. CORONARY ANGIOGRAPHY: 1. Left main: This is a large-sized vessel bifurcating into left circumflex, left anterior descending artery. The vessel is calcified, has 10 to 20% diffuse intimal disease. 2. Left anterior descending artery: This vessel is totally occluded proximally after the takeoff of the septal perforators. There is no significant antegrade flow. 3. Left circumflex: This is a large dominant vessel giving rise to four obtuse marginal branches. The proximal obtuse marginal branch is almost in the ramus intermedius territory. The proximal left circumflex has a 20% to 30% plaque after the takeoff of the second obtuse marginal branch. At the takeoff of the third obtuse marginal branch, there is a 50% plaque and the 90% to 95% plaque in the takeoff of the obtuse marginal branch. Distally the vessel is small in caliber and has no evidence of high-grade stenosis. The competitive flow into the third obtuse marginal branch was noted. 4. RIGHT CORONARY ARTERY: This is a large dominant vessel bifurcating distally PDA and posterolateral segment branches. The right coronary artery has mild diffuse intimal disease of 10 to 20% without any evidence of high-grade stenosis. 5. CALLAWAY to LAD the distal anastomotic site is patent. The flow into the LAD is brisk. There is no evidence of significant obstructive disease. 6. The saphenous vein graft to the obtuse marginal branch 3: The proximal and distal anastomotic sites are patent. The flow into the obtuse marginal branch is brisk. The graft has mild plaque of 20% in the proximal mid segment without any evidence of high-grade stenosis. 7. Saphenous vein graft to the obtuse marginal branch 1: This graft is totally occluded at the ostium without any evidence of flow. LEFT VENTRICULOGRAM: Left ventriculogram was not performed. HEMODYNAMICS: There was no gradient across the aortic valve. The ventricle end-diastolic pressure [place] is 16-20 mmHg. CONCLUSION: 1. Chronically occluded left anterior descending artery. 2. Significant disease in the third obtuse marginal branch. 3. Patent CALLAWAY to LAD. 4. Patent saphenous vein graft to the obtuse marginal branch 3. 5. Chronically occluded saphenous vein graft to the obtuse marginal branch 1. 6. Mild disease in the right coronary artery. RECOMMENDATIONS: In view of findings and anatomy, I recommend continue medical therapy with aggressive risk factor modifications that have been initiated. Those findings and recommendations were discussed with the patient and his family and they are in full understanding and agreement. Duration of sedation is 26 minutes. MMODL / IJN: [id number] /
[2021-06-20 13:18] VITALS: BP 157/73; PULSE 64
[2021-06-20] MEDS ORDERED: SYMBICORT 80-4.5 MCG INHALER INHALATION SCH (20:00)
[2021-06-20] MEDS ORDERED: METOPROLOL TARTRATE 25 MG TAB PO SCH (21:00)
[2021-06-21] MEDS ORDERED: TAMSULOSIN 0.4 MG CAP.ER.24H PO SCH (09:00)
[2021-06-21] MEDS ORDERED: ATORVASTATIN 20 MG TAB PO SCH (09:00)
[2021-06-21] MEDS ORDERED: ASPIRIN 81 MG PO SCH (09:00)
== END 2021-06-20 13:10 | disposition home or self-care (01) ==
LOC: CATHCVL 05:45
PROVIDERS: ATTEND Internal Medicine Interventional Cardiology
DX: I25.10 Atherosclerotic heart disease of native coronary artery without angina pectoris (principal); I25.810 Atherosclerosis of coronary artery bypass graft(s) without angina pectoris; I10 Essential (primary) hypertension; E78.5 Hyperlipidemia, unspecified; I48.19 Other persistent atrial fibrillation
CPT/HCPCS: 93459; 80048; 85025; 87635; C1760; C1894; C1769; J2001; J3010; Q9967